=== PATIENT | female | born 1990 | race Caucasian/White ===

== ENCOUNTER 2017-07-10 23:24 | Emergency (ER) | payer SELFPAY ==
--- NOTE | 2017-07-11 00:16 | PDOC ---
History of Present Illness - History of Present Illness Initial Comments: 07/11/17 00:44 Patient is a 26 F with significant PMHx of miscarriage, palpitations, who reports to the ER complaining of RLQ pain for 4 days. Patient states that 4 days ago she began to experience RLQ pain that she describes as sharp, cramping like. She states pain is exacerbated when she is driving over bumps. Prior to this, she experienced multiple episodes of vomiting and diarrhea since 07/03/17- . She states she normally experiences morning sickness (vomiting). Patient saw Dr. Rojo. in [place] on 06/22/18 and had an US done that showed a viable intra gestational sac at 8 weeks 6 days with heart rate of 133. Her LMP 04/12/17. Denies vaginal bleeding. Allergies: denies Surgical Hx: cosmetic only. ObGyn: Dr. Rojo ([facility]) <Myrna Yap - Last Filed: 07/11/17 01:47> <Maura Solorzano - Last Filed: 07/11/17 01:54> - General Stated Complaint: 12 WKS /PELVIC PAIN Time Seen by Provider: 07/10/17 23:55 Past History <Myrna Yap - Last Filed: 07/11/17 01:47> <Maura Solorzano - Last Filed: 07/11/17 01:54> - Past Medical History Allergies/Adverse Reactions: Allergies Allergy/AdvReac Type Severity Reaction Status Date / Time No Known Allergies Allergy Verified 07/11/17 01:44 Home Medications: Ambulatory Orders Cephalexin [Keflex] 500 mg PO BID #14 capsule 07/11/17 Review of Systems - Review of Systems Comments:: 07/11/17 00:44 CONSTITUTIONAL: Absent: fever, no chills, no fatigue EYES: Absent: visual changes ENT: Absent: ear pain, no sore throat CARDIOVASCULAR: Absent: chest pain, no palpitations RESPIRATORY: Absent: cough, no SOB GI: Present: RLQ pain, recent vomit, recent diarrhea Absent: no constipation GENITOURINARY: Absent: dysuria, no frequency, no hematuria MUSCULOSKELETAL: Absent: back pain, no arthralgia, no myalgia SKIN: Absent: rash NEURO: Absent: headache <Myrna Yap - Last Filed: 07/11/17 01:47> *Physical Exam - Vital Signs Last Vital Signs Temp Pulse Resp BP Pulse Ox 98.4 F 83 14 111/64 100 07/11/17 00:34 07/11/17 00:34 07/11/17 00:34 07/11/17 00:34 07/11/17 00:34 - Physical Exam Comments: 07/11/17 00:46 GENERAL: Well-appearing, well-nourished. No apparent distress. HEENT: Normocephalic, atraumatic. PERRL, EOM intact. CARDIOVASCULAR: Normal S1, S2. Regular rate and rhythm. PULMONARY: Clear to auscultation bilaterally. ABDOMEN: Mild RLQ pain to deep palpation Right adnexal pain/suprapubic pain and tenderness EXTREMITIES: Normal ROM in all four extremities. No gross deformities. SKIN: Warm, dry. No rash NEUROLOGICAL: No focal neurological deficits. <Myrna Yap - Last Filed: 07/11/17 01:47> ED Treatment Course - LABORATORY CBC & Chemistry Diagram: 07/11/17 01:09 07/11/17 01:00 - RADIOLOGY Radiograph Interpretation: 07/11/17 01:47 Reported by: Vivi Dempsey MD Exam: OB US Findings: single live intrauterine . Gestational age 11 weeks 5 days. heart rate 171 bpm. 1.8 cm complex corpus luteum right ovary. No ovarian torsion. Bilateral arterial and venous waveforms. <Myrna Yap - Last Filed: 07/11/17 01:47> - LABORATORY CBC & Chemistry Diagram: 07/11/17 01:09 07/11/17 01:00 <Maura Solorzano - Last Filed: 07/11/17 01:54> Medical Decision Making - Medical Decision Making 07/11/17 00:47 I read the dictated report done on 06/22/17 at [facility] of transvaginal US Intra-Gestational sac -8 weeks 6 days. heart rate 133. <Myrna Yap - Last Filed: 07/11/17 01:47> - Medical Decision Making 07/11/17 01:11 26-year-old female who presents with right lower adnexal pain. She denies vaginal bleeding. She was seen by [facility], Dr. Harrison at the [place] [facility]. Past medical history significant for 2, para 0, one miscarriage. June 22,017. She had transvaginal ultrasound that showed an 8 week 6 day intrauterine gestational sac 133, heart tones 07/11/17 01:45 UA +++UTI and she has a rt corpeus luteum cyst IMP UTI , started on keflex pain probably due to rt cyst 07/11/17 01:49 pelvic US : SL IUP 11 weeks 5 days FHT 171 bpm 1.8 cm complex corpus luteum cyst <Maura Solorzano - Last Filed: 07/11/17 01:54> *DC/Admit/Observation/Transfer - Attestations Scribe Attestion: 07/11/17 00:48 Documentation prepared by Myrna Yap, acting as emergency medical service manager for Maura Solorzano MD. <Myrna Yap - Last Filed: 07/11/17 01:47> <Maura Solorzano - Last Filed: 07/11/17 01:54> Diagnosis at time of Disposition: Corpus luteum cyst of right ovary Qualifiers: Weeks of gestation: 11 weeks Qualified Code(s): Z3A.11 - 11 weeks gestation of UTI (urinary tract infection) Qualifiers: Urinary tract infection type: site unspecified Hematuria presence: without hematuria Qualified Code(s): N39.0 - Urinary tract infection, site not specified - Discharge Dispostion Disposition: HOME Condition at time of disposition: Stable - Prescriptions Prescriptions: Cephalexin [Keflex] 500 mg PO BID #14 capsule - Patient Instructions Printed Discharge Instructions: DI for Urinary Tract Infection (UTI), DI for Ovarian Cyst, DI for -- Discomforts and Remedies Additional Instructions: PLEASE TAKE YOUR ANTIBIOTICS FOLLOW UP WITH YOUR [facility]
[2017-07-11 00:57] VITALS: BP 111/64; PULSE 83; TEMP 98.4; BMI 23.3
[2017-07-11 01:23] LABS: BASO % 0.6 % (0-2.0); HEMATOCRIT 36.8 % (32.4-45.2); HEMOGLOBIN 12.3 GM/dL (10.7-15.3); LYMPH % 31.1 % (8-40); MCH 29.5 pg (25.7-33.7); MCHC 33.5 g/dl (32.0-36.0); MEAN CELL VOLUME 87.9 fl (80-96); MEAN PLT VOLUME 8.2 fl (7.5-11.1); MONO % 7.9 % (3.8-10.2); NEUT % 58.4 % (42.8-82.8); PLATELET COUNT 280 K/MM3 (134-434); RBC 4.18 M/mm3 (3.60-5.2); RDW 13.3 % (11.6-15.6); WHITE BLOOD COUNT 11.1 K/mm3 (4.0-10.0)
[2017-07-11 01:24] LABS: URINE APPEARANCE SLCLOUDY; URINE BILIRUBIN NEGATIVE (NEGATIVE); URINE BLOOD NEGATIVE (NEGATIVE); URINE COLOR YELLOW; URINE GLUCOSE (UA) NEGATIVE (NEGATIVE); URINE KETONE NEGATIVE (NEGATIVE); URINE NITRITE POSITIVE (NEGATIVE); URINE PROTEIN NEGATIVE (NEGATIVE); URINE UROBILINOGEN NEGATIVE mg/dL (0.2-1.0)
[2017-07-11 01:29] LABS: URINE LEUK ESTERASE 2+ (NEGATIVE)
[2017-07-11 01:29] LABS: ALBUMIN 3.3 g/dl (3.4-5.0); ANION GAP 9 (8-16); BILIRUBIN,TOTAL 0.1 mg/dL (0.2-1.0); BLOOD UREA NITROGEN 6 mg/dL (7-18); CALCIUM 8.9 mg/dL (8.5-10.1); CHLORIDE 108 mmol/L (98-107); CO2 23 mmol/L (21-32); CREATININE 0.4 mg/dL (0.55-1.02); GLUCOSE,RANDOM 77 mg/dL (74-106); POTASSIUM 4.6 mmol/L (3.5-5.1); SGOT/AST 14 U/L (15-37); SGPT/ALT 20 U/L (12-78); SODIUM 140 mmol/L (136-145); TOT PROT 6.4 g/dl (6.4-8.2)
[2017-07-11 01:30] LABS: ALK PHOS 57 U/L (45-117)
[2017-07-11] MEDS ORDERED: CEPHALEXIN MONOHYDRATE 500 MG CAPSULE (UD) PO STA (01:32)
[2017-07-11] MEDS ORDERED: CEPHALEXIN MONOHYDRATE 250 MG CAPSULE (FP) ONE (01:41)
[2017-07-11 01:56] LABS: EPI CELLS RARE /HPF (FEW); URINE BACTERIA RARE /hpf (NONE SEEN); URINE MUCUS RARE
== END 2017-07-11 02:24 | disposition home or self-care (01) ==
LOC: JER 23:24
DX: O26.891 Other specified pregnancy related conditions, first trimester (principal); O23.41 Unspecified infection of urinary tract in pregnancy, first trimester; O34.81 Maternal care for other abnormalities of pelvic organs, first trimester; N83.11 Corpus luteum cyst of right ovary; Z3A.11 11 weeks gestation of pregnancy
CPT/HCPCS: 36415; 76801-TC; 80053; 81003; 81015; 84702; 85025; 99282-25